=== PATIENT | female | born 1985 | race Caucasian/White ===

== ENCOUNTER 2019-04-27 22:50 | Inpatient (IN) | payer MEDICAID ==
[~2019-04-27] VITALS: Ht 142.2 cm; Wt 62.6 kg
[2019-04-28] MEDS ORDERED: METHYLERGONOVINE MALEATE 0.2 MG/ML IM PRN ×2 (02:00→19:30)
[2019-04-28] MEDS ORDERED: LIDOCAINE HCL 1% 20ML VIAL (Pyxis) INJ INFIL SCH (02:00)
[2019-04-28] MEDS ORDERED: CARBOPROST TROMETHAMINE 250 MCG/ML AMPUL IM PRN (02:00)
[2019-04-28] MEDS ORDERED: RHO(D) IMMUNE GLOBULIN 300 MCG/SYR IM ONE (02:00)
[2019-04-28] MEDS ORDERED: NALOXONE HCL 0.4 MG/ML 1ML VIAL IM PRN (02:00)
[2019-04-28] MEDS ORDERED: PENICILLIN G POTASSIUM 5 MMU in DEXT 5% WATER 100 ML IV SCH (03:00)
[2019-04-28] MEDS: LACTATED RINGERS 1,000 ML IV SCH ×4 (03:24→17:05)
[2019-04-28 03:48] LABS: BASOPHILS % 0.4 % (0.0-2.0); EOSINOPHILS % 0.8 % (0.0-5.0); HEMATOCRIT. 36.6 % (36.0-48.0); HEMOGLOBIN. 12.5 g/dL (12.0-16.0); LYMPHOCYTES % 28.9 % (20.0-50.0); MEAN CORPUSCULAR HEMOGLOBIN 31.5 pg (28.0-32.0); MEAN CORPUSCULAR VOLUME 92.1 fL (81.0-99.0); MEAN PLATELET VOLUME 10.3 fl (7.4-10.4); NEUTROPHILS % 62.9 % (40.0-76.0); PLATELET 159 x1000/uL (130-400); RED BLOOD CELL COUNT 3.97 mill/uL (4.2-5.4); RED CELL DISTRIBUTION WIDTH 14.5 % (11.6-14.6)
[2019-04-28 03:55] LABS: CLARITY URINE CLEAR (CLEAR); COLOR URINE YELLOW (YELLOW); KETONES URINE NEGATIVE (NEGATIVE); LEUKOCYTE ESTERASE URINE NEGATIVE (NEGATIVE); NITRITE URINE NEGATIVE (NEGATIVE); OCCULT BLOOD URINE NEGATIVE (NEGATIVE); PROTEIN URINE NEGATIVE (NEGATIVE); SPECIFIC GRAVITY URINE 1.006 (1.005-1.030); UROBILINOGEN URINE 0.2 E.U./dL (0.2-1.0)
[2019-04-28] MEDS: MISOPROSTOL 100MCG TABLET VG PRN ×2 (04:04→07:16)
[2019-04-28 04:05] LABS: INR 0.9; PROTHROMBIN TIME 9.1 sec (9.6-11.0)
[2019-04-28] MEDS ORDERED: PNV1TABL50 PO (07:27)
[2019-04-28] MEDS ORDERED: URSO300C4 PO (07:27)
[2019-04-28] MEDS: PENICILLIN G POTASSIUM 2.5 MMU in DEXTROSE 5% WATER 50 ML IV SCH ×3 (08:22→17:43)
[2019-04-28] MEDS: URSODIOL 300MG CAPSULE PO SCH (08:59)
[2019-04-28] MEDS ORDERED: OXYTOCIN 20 UNITS in LACTATED RINGERS 1,000 ML IV PRN ×2 (09:00)
[2019-04-28] MEDS: BUTORPHANOL TARTRATE 2 MG/ML VIAL IV PRN ×2 (15:20→17:46)
[2019-04-28] MEDS ORDERED: DEXT 5%/LR + PITOCIN 20UNITS/L 1,000 ML IV SCH (19:26)
[2019-04-28] MEDS ORDERED: IBUPROFEN 400MG TABLET PO PRN (19:30)
[2019-04-28] MEDS ORDERED: LANOLIN OINT 7GM TUBE TOP PRN (19:30)
[2019-04-28] MEDS ORDERED: DIPHENHYDRAMINE 25MG CAPSULE PO PRN (19:30)
[2019-04-28] MEDS ORDERED: RHO(D) IMMUNE GLOBULIN 300 MCG/SYR IM PRN (19:30)
[2019-04-28 20:50] VITALS: BP 125/73
[2019-04-28] MEDS: IBUPROFEN 800MG TABLET PO PRN (21:05)
[2019-04-29 04:00] VITALS: BP 128/76
[2019-04-29 07:31] VITALS: BP_SYST 117; BP_DIAS 73; BP_DIAS 76
[2019-04-29 07:39] LABS: BASOPHILS % 0.4 % (0.0-2.0); EOSINOPHILS % 0.4 % (0.0-5.0); HEMATOCRIT. 34.8 % (36.0-48.0); HEMOGLOBIN. 12.2 g/dL (12.0-16.0); LYMPHOCYTES % 21.4 % (20.0-50.0); MEAN CORPUSCULAR HEMOGLOBIN 32.4 pg (28.0-32.0); MEAN CORPUSCULAR VOLUME 92.6 fL (81.0-99.0); MEAN PLATELET VOLUME 9.9 fl (7.4-10.4); MONOCYTES % 6.5 % (2.0-8.0); NEUTROPHILS % 71.3 % (40.0-76.0); PLATELET 158 x1000/uL (130-400); RED BLOOD CELL COUNT 3.76 mill/uL (4.2-5.4); RED CELL DISTRIBUTION WIDTH 14.7 % (11.6-14.6)
[2019-04-29] MEDS: IBUPROFEN 800MG TABLET PO PRN ×2 (08:27→19:44)
[2019-04-29] MEDS: PRENATAL VIT/FE FUMARATE/FA TABLET PO SCH (08:27)
[2019-04-29] MEDS: URSODIOL 300MG CAPSULE PO SCH ×3 (08:41→17:48)
[2019-04-29 15:55] VITALS: BP 111/68
[2019-04-29 22:00] VITALS: BP 129/83
[2019-04-30 05:55] VITALS: BP 121/78
[2019-04-30 08:00] VITALS: BP 118/72
[2019-04-30 09:00] VITALS: BP 118/74
[2019-04-30] MEDS: PRENATAL VIT/FE FUMARATE/FA TABLET PO SCH (09:01)
[2019-04-30] MEDS: URSODIOL 300MG CAPSULE PO SCH (10:33)
== END 2019-04-30 11:30 | disposition home or self-care (01) | DRG 560 ==
LOC: UNDOADMOB 22:50 → 8 EST LDRP 22:50 → OBSVTOIN 04-28 02:07 → 8 EST LDRP 04-28 02:07 → INTOOBSV 04-28 02:07 → 8EST 04-28 20:45
PROVIDERS: ADMIT Obstetrics & Gynecology; ATTEND Obstetrics & Gynecology
PROC: 10E0XZZ Delivery of Products of Conception, External Approach (ICD-10-PCS; principal; 2019-04-28)
PROC: 10907ZC Drainage of Amniotic Fluid, Therapeutic from Products of Conception, Via Natural or Artificial Opening (ICD-10-PCS; 2019-04-28)
DX: O26.62 Liver and biliary tract disorders in childbirth (principal); K83.1 Obstruction of bile duct; O24.429 Gestational diabetes mellitus in childbirth, unspecified control; O99.354 Diseases of the nervous system complicating childbirth; G43.909 Migraine, unspecified, not intractable, without status migrainosus; Z37.0 Single live birth; Z3A.36 36 weeks gestation of pregnancy
CPT/HCPCS: 36415; 76805; 76818; 82947; 86592; 86703; 86850; 86900; 87340; 96365; 96366; 96367; 96372; 99281; G0378; J0595; J2310; J2540; J3490; J7060; J7120